=== PATIENT | male | born 1965 | race Caucasian/White ===

== ENCOUNTER → 2020-11-07 08:57 | Outpatient (CLI) | payer OTHER, SELFPAY ==
[2020-11-07 20:53] LABS: SARS-CoV-2 RNA PCR Negative
== END ==
PROVIDERS: PCP Internal Medicine; Visit Provider Internal Medicine
DX: J01.90 Acute sinusitis, unspecified (principal); Z20.822 Contact with and (suspected) exposure to COVID-19
CPT/HCPCS: C9803; U0003; U0005

== ENCOUNTER 2021-05-27 12:18 | Outpatient (CLI) | payer OTHER, SELFPAY ==
--- NOTE | ~2021-05-27 | US_ITS ---
EXAMINATION: US soft tissue LE LT DATE: 05/27/2021 12:42 INDICATION: Lump at the posterior left calf TECHNIQUE: Multiple grayscale and Doppler ultrasound images of the region of concern at the posterior left calf were obtained. COMPARISON: Ultrasound dated 02/27/2019 FINDINGS: No interval change in a 10 x 10 x 3 mm hypoechoic nodule in the subcutaneous fat at the posterior lef t calf. Tiny focus of internal color flow on color Doppler which is significantly less than on the pr ior study at which time there also appeared to be a vein feeding and draining the nodule with appeara nce suggesting a varicose vein with focal thrombosis. IMPRESSION: 1. No interval change since 2018 in a likely benign 10 x 10 x 3 mm hypoechoic nodule in the subcutane ous tissues at the region of concern. Differential would include thrombosed superficial varix ascites which is favored based upon appearance on the prior study), vascular malformation/hemangioma or pote ntially schwannoma/peripheral nerve sheath tumor. Reviewed, dictated and finalized at location A. IMPRESSION: 1. No interval change since 2018 in a likely benign 10 x 10 x 3 mm hypoechoic n odule in the subcutaneous tissues at the region of concern. Differential would include thrombosed superficial varix ascites which is favored based upon appear ance on the prior study), vascular malformation/hemangioma or potentially schwa nnoma/peripheral nerve sheath tumor.
== END 2021-05-27 12:19 | disposition home or self-care (01) ==
PROVIDERS: PCP Internal Medicine; Visit Provider Internal Medicine
DX: M79.89 Other specified soft tissue disorders (principal)
CPT/HCPCS: 76882

== ENCOUNTER → 2021-09-13 00:50 | Outpatient (CLI) | payer OTHER, SELFPAY ==
[2021-09-15 20:06] LABS: SARS-CoV-2 RNA PCR Negative
== END ==
PROVIDERS: PCP Internal Medicine; Visit Provider Internal Medicine
DX: Z20.822 Contact with and (suspected) exposure to COVID-19 (principal)
CPT/HCPCS: C9803; U0003; U0005

== ENCOUNTER 2022-02-15 23:09 | Emergency (ER) | payer OTHER, SELFPAY ==
--- NOTE | ~2022-02-15 | XR_ITS ---
EXAMINATION: XR chest 2V DATE: 02/15/2022 23:54 INDICATION: Palpitations. TECHNIQUE: Frontal and lateral views of the chest were obtained. COMPARISON: None. FINDINGS: The chest demonstrates clear lungs without pneumonia, pleural effusion, or pneumothorax. Th e heart size is normal. IMPRESSION: 1. No acute cardiopulmonary disease. Reviewed, dictated and finalized at location A.
[2022-02-15 23:16] VITALS: BP 156/80; PULSE 67; PULSE 68; RESP 14; RESP 15; TEMP 36.1; O2SAT 100
[2022-02-15 23:17] VITALS: BP 156/80; PULSE 66; RESP 14; O2SAT 98
[2022-02-15 23:30] VITALS: O2SAT 99
[2022-02-15 23:32] VITALS: BP 140/83; O2SAT 99
--- NOTE | 2022-02-15 23:36 | ECG_ITS ---
Measurements Intervals [place] Rate: 62 P: 9 W[place]: 156 QRS: 71 QRSD: 114 T: 45 QT: 400 QTc: 409 Interpretive Statements SINUS RHYTHM INTRAVENTRICULAR CONDUCTION DELAY BORDERLINE ECG Electronically Signed On 02-16-2022 5:41:16 CDT by Gerard Escobedo D.O.
[2022-02-15 23:45] VITALS: O2SAT 97
[2022-02-15 23:45] LABS: Basophils Absolute Auto 0.1 K/mm3 (0.0-0.1); Basophils Percent Auto 0.7 % (0.2-1.2); Eosinophils Absolute Auto 0.3 K/mm3 (0-0.3); Eosinophils Percent Auto 4.2 % (0-4.4); Hematocrit 45.8 % (42.0-52.0); Hemoglobin 15.2 g/dL (14.0-18.0); Immature Granulocyte Absolute 0.04 K/mm3 (0.00-0.031); Immature Granulocyte Percent A 0.5 % (0-0.5); Lymphocytes Absolute Auto 2.21 K/mm3 (0.9-3.2); Lymphocytes Percent Auto 30.3 % (18.3-44.2); Mean Corpuscular HGB Conc 33.2 g/dl (32-36); Mean Corpuscular Hemoglobin 30.2 pg (26-34); Mean Corpuscular Volume 90.9 fl (80-100); Mean Platelet Volume 11.8 fl (7.4-10.4); Monocytes Percent Auto 14.1 % (2.6-8.5); Neutrophils Absolute Auto 3.7 K/mm3 (1.3-6.7); Neutrophils Percent Auto 50.2 % (45.5-73.1); Platelet Count Result 192 k/mm3 (150-375); Red Blood Count 5.04 M/mm3 (4.6-6.20); Red Cell Distribution Width 13.2 % (11.5-14.5); White Blood Count 7.3 K/mm3 (4.5-10.0)
--- NOTE | 2022-02-15 23:48 | PC.NURSE ---
Patient taken to xray.
[2022-02-15 23:57] LABS: Alanine Aminotransferase 20 U/L (6-50); Albumin Level 4.1 g/dL (3.5-5.1); Alkaline Phosphatase 114 U/L (38-126); Anion Gap 8 mmol/L (8-16); Aspartate Amino Transferase 21 U/L (17-59); Bilirubin,Total 0.3 mg/dL (0.2-1.3); Blood Urea Nitrogen 19 mg/dL (9-20); Calcium 8.9 mg/dL (8.4-10.2); Carbon Dioxide 26 mmol/L (22-30); Chloride 103 mmol/L (98-107); Estimated Glomerular Filt Rate > 60; Glucose 109 mg/dL (65-110); Lipase 305 U/L (23-300); Potassium 3.8 mmol/L (3.4-5.0); Sodium 137 mmol/L (137-145)
[2022-02-16] VITALS (9 sets, daily range): BP systolic 146–158; BP diastolic 85–88; PULSE 57–70; RESP 14–17; O2SAT 96–99
[2022-02-16 00:03] LABS: INR 1.1; Prothrombin Time 13.5 Seconds (11.1-14.7)
[2022-02-16 00:09] LABS: Troponin I < 0.012 ng/mL (0.000-0.034)
--- NOTE | 2022-02-16 00:38 | ED.ARRPALP ---
HPI - Arrhythmia/Palpitations General Chief Complaint: Arrhythmia/Palpitations <SANDER Lazo Last Filed: 02/16/22 02:08> Stated Complaint: palpitations <SANDER Lazo Last Filed: 02/16/22 02:08> Time Seen by Provider: 02/16/22 00:10 <SANDER Lazo Last Filed: 02/16/22 02:08> Source: patient <SANDER Lazo Last Filed: 02/16/22 02:08> Mode of arrival: ambulatory <SANDER Lazo Last Filed: 02/16/22 02:08> Limitations: no limitations <SANDER Lazo Filed: 02/16/22 02:08> History of Present Illness HPI narrative: Patient is a 56-year-old male who presents the ED with report of palpitations. Patient reports having palpitations today, described as though his heart was skipping a beat. He states his symptoms occurred sporadically throughout the day. No identifiable stressors or aggravating factors to the palpitations. No exertional component. He states he noticed the palpitations more tonight when he laid down to go to sleep, which prompted him to come to the ED. He states he and his checked his pulse there portable pulse oximeter and noted his heart rate to be anywhere from the 20s to the 80s. Denies ever having palpitations like this before. Denies chest pain, difficulty breathing. He did note he felt slightly lightheaded when the palpitations began, but admits to an anxiety component of this as well. Denies passing out. Denies headache. No recent cough or cold symptoms, fever, chills, abdominal pain, nausea, vomiting, BLE pain or edema. No cardiac history. <SANDER Lazo Last Filed: 02/16/22 02:08> Related Data Home Medications: Home Medications Medication Instructions Recorded Confirmed No Home Medications 09/10/21 09/10/21 <SANDER Lazo Last Filed: 02/16/22 02:08> Allergies/Adverse Reactions: Allergies Allergy/AdvReac Type Severity Reaction Status Date / Time No Known Allergies Allergy Verified 02/15/22:18 <Marlene Mcrae PA-C - Last Filed: 02/16/22 02:08> Review of Systems Review of Systems: CONSTITUTIONAL: Denies fever, chills, or sweats. ENT: Denies rhinorrhea, congestion. CARDIOVASCULAR: Reports palpitations, bradycardia. Denies chest pain, BLE edema. RESPIRATORY: Denies cough or dyspnea. GASTROINTESTINAL: Denies abdominal pain, nausea, vomiting, or diarrhea. GENITOURINARY: Denies dysuria or hematuria. SKIN: Denies rash or itching. MUSCULOSKELETAL: Denies BLE pain, back pain. NEUROLOGIC: Reports lightheadedness. Denies headache, syncope, numbness, or weakness. PSYCHIATRIC: Reports anxiety. <Marlene Mcrae PA-C - Last Filed: 02/16/22 02:08> All systems reviewed & are unremarkable except as noted in HPI and below <Marlene Mcrae PA-C - Last Filed: 02/16/22 02:08> PMFSH Past Medical History Medical History: Medical History (Updated 02/16/22 @ 01:48 by Marlene Mcrae PA-C) Colonic polyp Hyperglycemia <Marlene Mcrae PA-C - Last Filed: 02/16/22 02:08> Surgical History Surgical History: Surgical History (Updated 02/16/22 @ 00:40 by Marlene Mcrae PA-C) No pertinent past surgical history <Marlene Mcrae PA-C - Last Filed: 02/16/22 02:08> Family History Family History: Family History Mother Patient's mother is in good health Father Malignant neoplasm of prostate <Marlene Mcrea PA-C - Last Filed: 02/16/22 02:08> Social History Social History: Social History Smoking status: Never smoker Second hand tobacco smoke exposure: No Alcohol intake: current Drinks per week: 9 Substance use: never <Marlene Mcrae PA-C - Last Filed: 02/16/22 02:08> Exam Narrative: GENERAL: Well appearing, well-nourished, non-toxic, in no acute distress. HEAD: Normocephalic, atraumatic. NECK: Supple. No adenopathy, no mass
[2022-02-16 00:58] LABS: D Dimer 0.28 ug/mL (<0.48)
[2022-02-16 00:59] LABS: Magnesium 2.1 mg/dL (1.6-2.3)
== END 2022-02-16 02:08 | disposition home or self-care (01) ==
PROVIDERS: Physician Assistant; Emergency Provider Emergency Medicine; PCP Internal Medicine
DX: R00.2 Palpitations (principal); I45.9 Conduction disorder, unspecified; Z86.010 Personal history of colon polyps
CPT/HCPCS: 36415; 71046; 80053; 83690; 83735; 84484; 85025; 85380; 85610; 85730; 93005; 99284

== ENCOUNTER 2023-06-03 11:14 | Emergency (ER) | payer OTHER, SELFPAY ==
--- NOTE | 2023-06-03 11:20 | ED.EYEPROB ---
HPI - Eye Problem General Chief complaint: Eye Problems Stated complaint: [place] eye Time Seen by Provider: 06/03/23 11:20 Source: patient Mode of arrival: ambulatory Limitations: no limitations History of Present Illness HPI Narrative: Patient is a 57-year-old male who presents with right eye irritation, burning sensation and watering since yesterday evening. Patient states his boss was recently diagnosed with pinkeye and told him he needed to come be seen. Denies any congestion, ear pain, fever, chills, cough, sore throat. Related Data Allergies Allergy/AdvReac Type Severity Reaction Status Date / Time No Known Allergies Allergy Verified 06/03/23 11:20 Review of Systems Review of Systems: All systems reviewed & are unremarkable except as noted in HPI and below Constitutional: Constitutional: Denies body ache(s), Denies fever(s), Denies headache(s), Denies malaise and Denies weakness Eyes: Eyes: Denies blurry vision, Reports eye discharge, Reports irritation, Reports itchy eyes, Denies loss of vision and Denies eye pain ENT: Denies otalgia, Denies headache(s), Denies nasal discharge, Denies sinus pain and Denies sore throat Cardiovascular: Cardiovascular: Denies chest pain, Denies irregular heart rhythm and Denies dyspnea Respiratory: Respiratory: Denies dyspnea Gastrointestinal: Gastrointestinal: Denies abdominal pain, Denies diarrhea, Denies nausea and Denies vomiting Musculoskeletal: Musculoskeletal: Denies back pain, Denies myalgias and Denies arthralgias Integumentary/Breasts: Skin/Breast: Denies pruritus and Denies rash Neurologic: Denies headache(s), Denies loss of vision and Denies weakness Psychiatric: Psychiatric: Reports no additional psychiatric complaints Allergic/Immunologic: Allergic/Immunologic: Reports itchy eyes PMFSH Past Medical History Medical History Colonic polyp Hyperglycemia Surgical History Surgical History No pertinent past surgical history Family History Family History Mother Patient's mother is in good health Father Malignant neoplasm of prostate Social History Social History Smoking status: Never smoker Second hand tobacco smoke exposure: No Alcohol intake: current Drinks per week: 9 Substance use: never Lack of Transportation: No Lack of Food: Never True Current Housing: I Have Housing Concerned About Future Housing: No Difficulty Paying Gas/Electric Bills: No Difficulty Paying for Meds: No Currently Unemployed: No Education: High School Diploma/GED Difficulty w/ Childcare or Family Care: No Comments At time of signature, agree with nursing past medical, surgical, social and family history. There is no relevant family history pertinent to the presenting complaint. Exam Const: General: cooperative, healthy appearing, comfortable, no acute distress and well nourished Nutritional Appearance: well nourished Orientation/consciousness: patient oriented x3 Limitations: no limitations HENMT: Head: normal to inspection, normocephalic and atraumatic Ears: external ears normal Face/Nose/Sinus: Normal external nose present, normal facial exam and face symmetric Face and sinus: normal facial exam and face symmetric Mouth: Yes lip normal Eyes: General: appearance normal, both eyes and all related structures Visual Knight: normal visual knight by confrontation Alignment and Position: alignment normal and position normal Periorbital: periorbital findings normal Eyelids: eyelid abnormality right upper eyelid erythema and swelling Conjunctivae: conjunctival abnormality right conjunctival injection diffuse (Mild) Sclera: scleral abnormality right scleral injection diffuse (Mild) Pupils: Equal, round and reactive pupils present
[2023-06-03 11:22] VITALS: BP 132/69; PULSE 67; RESP 16; TEMP 36.8; O2SAT 100
== END 2023-06-03 11:47 | disposition home or self-care (01) ==
PROVIDERS: Emergency Provider Nurse Practitioner Family
DX: H10.31 Unspecified acute conjunctivitis, right eye (principal)
CPT/HCPCS: 99213; G0463

== ENCOUNTER 2023-10-13 05:48 | Day surgery (SDC) | payer OTHER, SELFPAY ==
[2023-08-27 14:26] VITALS: BMI 29.2
[2023-09-24 09:53] VITALS: BMI 27.3
[2023-10-13 06:18] VITALS: BMI 29.2
[2023-10-13 06:19] VITALS: BP 119/74; PULSE 71; RESP 16; TEMP 36.8; O2SAT 100
[2023-10-13] MEDS: LACTATED RINGERS 1,000 ML 150 ML IV CONT (06:40)
--- NOTE | 2023-10-13 07:07 | PM.HPGS ---
History of Present Illness History of Present Illness Consent: Risks, benefits, and alternatives have been discussed and questions answered. Patient agrees to proceed with procedure. Chief complaint: History of Colon Polyps Narrative: Derrell Corbin is a 58 year old male screening colonoscopy. Patient's family history is significant his father had colon cancer. Patient himself has had an adenomatous colon polyp removed from the colon at the time of last procedure 5 years ago. Patient's current weight appetite and bowel movements are normal. Review of Systems Review of Systems: Review of systems noncontributory. [facility] Past Medical History Medical History Colonic polyp Hyperglycemia Surgical History Surgical History No pertinent past surgical history Family History Family History Mother Patient's mother is in good health Father Malignant neoplasm of prostate Social History Social History Smoking status: Never smoker Second hand tobacco smoke exposure: No Alcohol intake: current Drinks per week: 9 Substance use: never Substance use type: does not use Lack of Transportation: No Lack of Food: Never True Current Housing: I Have Housing Concerned About Future Housing: No Difficulty Paying Gas/Electric Bills: No Difficulty Paying for Meds: No Currently Unemployed: No Education: High School Diploma/GED Difficulty w/ Childcare or Family Care: No Living arrangements: with family Spiritual care concerns: No Meds Home Medications and Allergies Home Medications Medication Instructions Recorded Confirmed Type tadalafil 5 mg tablet 5 mg PO DAILY #90 tabs 12/29/22 10/13/23 Rx lisinopril 20 mg tablet 20 mg PO DAILY #90 tabs 09/07/23 10/13/23 Rx Allergies Allergy/AdvReac Type Severity Reaction Status Date / Time No Known Allergies Allergy Verified 10/13/23 06:09 Vital Signs Vital Signs - 24 hr 10/13/23 06:19 Temperature 98.3 F Pulse Rate 71 Respiratory Rate 16 Blood Pressure 119/74 Pulse Oximetry 100 Oxygen Delivery Room Air Exam Narrative: Physical exam reveals patient to be alert. Vital signs stable. HEENT exam is unremarkable. Patient is anicteric. Lungs are clear to auscultation and percussion. Heart is without murmur or extra sounds. Abdomen bowel sounds are present soft nontender with no organomegaly. Digital external rectal exam normal. Assessment and Plan Assessment and plan (1) History of colon polyps: Code(s): Z86.010 - Personal history of colonic polyps Status: Acute Assessment and Plan: patient found to have adenomatous colon polyp the time of colonoscopy in 2017. (2) Family history of colon cancer in father: Code(s): Z80.0 - Family history of malignant neoplasm of digestive organs Status: Acute Assessment and Plan: Patient's father has had colon cancer. Suggest follow-up colonoscopy in 5 years.
--- NOTE | 2023-10-13 07:19 | P.PNAN_ITS ---
Anes - Initial Pre Proc Eval Procedure: Operation Date: 10/13/23 07:30 Proposed Procedures p Colonoscopy - Song Muñoz MD Date/Time: 10/13/23 07:19 Surgeon: Song Muñoz MD Pre Op Diagnosis: History of Colon Polyps Patient Data Age: 58 Gender: M Height: 1.73 m Weight: 87.4 kg Last Vital Signs Temp 36.8 C 10/13/23 06:19 Pulse 71 10/13/23 06:19 Resp 16 10/13/23 06:19 BP 119/74 10/13/23 06:19 Pulse Ox 100 10/13/23 06:19 O2 Del Method Room Air 10/13/23 06:19 Allergies Allergy/AdvReac Type Severity Reaction Status Date / Time No Known Allergies Allergy Verified 10/13/23 06:09 Home Medications Medication Instructions Recorded Confirmed Type tadalafil 5 mg tablet 5 mg PO DAILY #90 tabs 12/29/22 10/13/23 Rx lisinopril 20 mg tablet 20 mg PO DAILY #90 tabs 09/07/23 10/13/23 Rx Patient hx anesthesia problems: none Family hx anesthesia problems: none Results Review: All pre-operative results and documents have been reviewed as part of the pre- operative evaluation. [facility] Past Medical History Medical History Colonic polyp Hyperglycemia Surgical History Surgical History No pertinent past surgical history Family History Family History Mother Patient's mother is in good health Father Malignant neoplasm of prostate Social History Social History Smoking status: Never smoker Second hand tobacco smoke exposure: No Alcohol intake: current Drinks per week: 9 Substance use: never Substance use type: does not use Lack of Transportation: No Lack of Food: Never True Current Housing: I Have Housing Concerned About Future Housing: No Difficulty Paying Gas/Electric Bills: No Difficulty Paying for Meds: No Currently Unemployed: No Education: High School Diploma/GED Difficulty w/ Childcare or Family Care: No Living arrangements: with family Spiritual care concerns: No Anes - Eval Final PreProcedure Day of Procedure 10/13/23 07:19 Patient weight: overweight Heart: regular rate and rhythm Lungs: clear to auscultation Airway: Mallampati scale class II Neurological: alert and oriented Last oral intake: >/= 8 hours ASA classification: II Emergent: no Anesthetic plan: proceed Anesthesia type and monitoring: general GIVS and standard monitoring Results Review: All pre-operative results and documents have been reviewed as part of the pre- operative evaluation. Informed Consent: The patient's anesthetic plan and its attendant risks and benefits were discussed with the patient/family/POA. Questions were solicited and answers provided to the satisfaction of the patient/family/POA.
[2023-10-13 07:39] VITALS: BP 84/56; PULSE 69; RESP 16; O2SAT 98
[2023-10-13 07:49] VITALS: BP 97/68; PULSE 65; RESP 16; O2SAT 99
--- NOTE | 2023-10-13 07:49 | WPDANESPN ---
Anes - Prog Note Post-Op Date/Time: 10/13/23 07:49 Cardiovascular status: normal Respiratory status: normal Airway patency: baseline Mental status: baseline Post-Op hydration status: normal Vital Signs: Last Vital Signs Temp 36.8 C 10/13/23 06:19 Pulse 69 10/13/23 07:39 Resp 16 10/13/23 07:39 BP 84/56 L 10/13/23 07:39 Pulse Ox 98 10/13/23 07:39 O2 Del Method Room Air 10/13/23 07:39 Pain Score (VAS): 0 I/O: Intake & Output 10/12/23 10/12/23 10/13/23 15:59 23:59 07:59 Intake Total 400 Balance 400 Patient Feedback: Patient satisfied with anesthetic care.
[2023-10-13 07:59] VITALS: BP 115/75; PULSE 60; RESP 15; O2SAT 99
== END 2023-10-13 08:09 | disposition home or self-care (01) ==
PROVIDERS: PCP Internal Medicine; Visit Provider Internal Medicine Gastroenterology
PROC: 0DJD8ZZ Inspection of Lower Intestinal Tract, Via Natural or Artificial Opening Endoscopic (ICD-10-PCS; CPT 45378; principal; 2023-10-13 07:30)
DX: Z86.010 Personal history of colon polyps (principal); D12.2 Benign neoplasm of ascending colon; K57.30 Diverticulosis of large intestine without perforation or abscess without bleeding; K64.8 Other hemorrhoids
CPT/HCPCS: 45380

== ENCOUNTER 2023-10-13 07:00 | Outpatient (NON) | payer OTHER, SELFPAY | END 2023-10-13 07:01 | disposition home or self-care (01) | PROVIDERS: PCP Internal Medicine; Visit Provider Internal Medicine Gastroenterology | DX: K63.5 Polyp of colon (principal) | CPT/HCPCS: 88305 ==